=== PATIENT | female | born 1940 | race Caucasian/White ===

== ENCOUNTER 2021-12-11 03:09 | Emergency (ER) | payer MEDICARE ==
[~2021-12-11] VITALS: Ht 167.6 cm; Wt 77.5 kg
--- NOTE | 2021-12-11 03:27 | EKG ---
[address] [address] Test Date: 2021-12-11 Test Time: 03:21:37 Pat Name: HADLEY FISHER Department: Room: Gender: F Incident Handler: CHRISTI : 1940 Requested By: KHANH HOLELY Order Number: [id number] Reading MD: Hardy Ramirez MD Measurements Intervals [place] Rate: 71 P: RI: QRS: 19 QRSD: 78 T: 24 QT: 386 QTc: 424 Interpretive Statements SR PACS Electronically Signed On 12-11-2021 10:55:49 [employer]OVE [employer]INTER by Hardy Ramirez MD
[2021-12-11] MEDS ORDERED: ONDANSETRON PF 4 MG/2 ML VIAL. IVP ONE (04:00)
[2021-12-11] MEDS ORDERED: MORPHINE SULFATE 4 MG/ML DISP.SYRIN. ONE (04:00)
[2021-12-11] MEDS ORDERED: CONTRAST GIVEN. MC PRN (04:00)
[2021-12-11] MEDS ORDERED: FAMOTIDINE 20 MG/2 ML VIAL IVP ONE (04:00)
[2021-12-11] MEDS ORDERED: IV NORMAL SALINE 1,000ML 1,000 ML IV ONE (04:00)
[2021-12-11 04:02] LABS: BASO % 0 % (0-3); EOS # 0.3 x10^3/uL (0.0-0.7); EOS % 2 % (0-3); HEMATOCRIT 40.9 % (36.0-47.0); HEMOGLOBIN 13.2 g/dL (12.0-15.5); LYMPH % 18 % (24-48); MEAN CORPUSCULAR HEMOGLOBIN 30 pg (25-35); MEAN CORPUSCULAR HGB CONC 32 g/dL (31-37); MEAN CORPUSCULAR VOLUME 94 fL (79-100); MONO # 0.8 x10^3/uL (0.0-1.1); MONO % 7 % (0-9); NEUT # 8.1 x10^3uL (1.8-7.7); NEUT % 73 % (31-73); PLATELET COUNT 245 x10^3/uL (140-400); RED BLOOD COUNT 4.34 x10^6/uL (3.50-5.40); RED CELL DISTRIBUTION WIDTH 14.1 % (11.5-14.5); WHITE BLOOD COUNT 11.2 x10^3/uL (4.0-11.0)
[2021-12-11 04:14] LABS: CALCIUM 9.1 mg/dL (8.5-10.1); CREATININE 0.7 mg/dL (0.6-1.0); GFR 80.5; POTASSIUM 3.9 mmol/L (3.5-5.1)
[2021-12-11 04:19] LABS: ALBUMIN 3.8 g/dL (3.4-5.0); ALBUMIN/GLOBULIN RATIO 1.2 (1.0-1.7); MAGNESIUM 2.1 mg/dL (1.8-2.4); TOTAL BILIRUBIN 0.6 mg/dL (0.2-1.0); TOTAL PROTEIN 6.9 g/dL (6.4-8.2)
--- NOTE | 2021-12-11 04:22 | RAD ---
EXAM: CT head without contrast INDICATION: Headache, nausea COMPARISON: CT head 12/11/2021 TECHNIQUE: Axial CT imaging through the head without intravenous contrast. Sagittal and coronal refor mats were obtained. One or more of the following individualized dose reduction techniques were utilized for this examinat ion: 1. Automated exposure control 2. Adjustment of the mA and/or kV according to patient size 3. Use of iterative reconstruction technique. FINDINGS: There is subarachnoid hemorrhage throughout the basal cisterns and in the fourth ventricle. Ventricle s and sulci are prominent. There is mild patchy deep white matter hypoattenuation. No acute infarct. No midline shift. The skull and scalp are intact. Paranasal sinuses and mastoid air cells are clear. Globes and orbits are intact. IMPRESSION: Subarachnoid hemorrhage in the basal cisterns. Recommend CT angiogram to further evaluate . FOR INTERNAL CODING PURPOSES Critical result: Findings discussed with KHANH HOLLEY DO at 12/11/2021 4:18 AM. RESULT CODE: (C) Electronically signed by: Anayeli Mcbride MD (12/11/2021 4:20 AM) JOSE
--- NOTE | 2021-12-11 04:27 | PHYS DOC ---
Past History Past Surgical History: Pacemaker Additional Past Surgical Histo: right knee, Hip replacement x2 Alcohol Use: Occasionally General Adult EDM: Chief Complaint: HEADACHE HPI: HPI: 81 yo F PMH HTN, HLD and SSS w/pacemaker, presents to the ED brought in by patient's son with complaints of left-sided gradual onset headache, slowly worsening with associated nausea and vomiting. Reports symptoms started approximately 4 hours ago around midnight. Patient states approximate 1 week ago was admitted to [facility] after syncopal episode. Patient had a loop recorder at that time that showed a 6-second pause and a pacemaker was placed. Patient reports no recent falls or trauma after being discharged from the hospital. Is not on any anticoagulants. No history of migraine headaches. No associated photophobia, phonophobia, aphasia, facial droop, arm or leg weakness, blurry vision or chest pain. Review of Systems: Review of Systems: Constitutional: Denies fever or chills Eyes: Denies change in visual acuity HENT: Denies nasal congestion or sore throat Respiratory: Denies cough or shortness of breath Cardiovascular: Denies chest pain or edema GI: Denies abdominal pain, bloody stools or diarrhea : Denies dysuria or hematuria Musculoskeletal: Denies back pain or joint pain Integument: Denies rash or diaphoresis Neurologic: Denies neck pain, focal weakness or sensory changes Endocrine: Denies polyuria or polydipsia Lymphatic: Denies swollen glands Psychiatric: Denies depression or anxiety Current Medications: Current Meds: Current Medications Medications (Trade) Dose Ordered Sig/Sarah Start Time Stop Time Status Last Admin Dose Admin Famotidine (Pepcid Vial) 20 mg 1X ONCE 12/11/21 04:00 12/11/21 04:01 DC 12/11/21 03:48 20 MG Info (Do NOT chart on this entry -- for MONITORING) 1 each PRN DAILY PRN 12/11/21 04:00 12/13/21 03:59 Iohexol (Omnipaque 350 Mg/ml) 100 ml 1X ONCE 12/11/21 04:30 12/11/21 04:31 Metoclopramide HCl (Reglan Vial) 10 mg 1X ONCE 12/11/21 04:30 12/11/21 04:31 12/11/21 04:04 10 MG Morphine Sulfate (Morphine 4mg Syringe) 4 mg STK-MED ONCE 12/11/21 04:00 12/11/21 04:00 DC Ondansetron HCl (Zofran) 4 mg 1X ONCE 12/11/21 04:00 12/11/21 04:01 DC 12/11/21 03:48 4 MG Sodium Chloride 1,000 ml @ 1,000 mls/hr 1X ONCE 12/11/21 04:00 12/11/21 04:59 12/11/21 03:48 1,000 MLS/HR Allergies: Allergies: Allergies Coded Allergies Type Severity Reaction Last Updated Verified latex Allergy Intermediate 12/11/21 Yes Physical Exam: PE: Constitutional: Uncomfortable appearing, holding her head in her hands, active emesis HENT: Bilateral periorbital ecchymosis which appears old-son states this was from fall 1 week ago Eyes: Pupils equal and reactive EOMI, conjunctiva normal, no discharge. Neck: Normal range of motion, supple, no midline neck pain Cardiovascular: S1/2 present, regular rhythm Lungs & Thorax: Speaking in full sentences, bilateral equal chest rise, no tachypnea or increased work of breathing Abdomen: soft, no tenderness, Skin: Warm, dry, no erythema, no rash. [] Extremities: No tenderness, no cyanosis, Neurologic: NIHSS0, GCS 15, Alert and oriented X 3, normal motor function, normal sensory function, no focal deficits noted. [] Psychologic: Normal mood, normal affect Current Patient Data: Labs: Laboratory Tests Test 12/11/21 03:34 White Blood Count 11.2 x10^3/uL (4.0-11.0) H Red Blood Count 4.34 x10^6/uL (3.50-5.40) Hemoglobin 13.2 g/dL (12.0-15.5) Hematocrit 40.9 % (36.0-47.0) Mean Corpuscular Volume 94 fL (79-100) Mean Corpuscular Hemoglobin 30 pg (25-35) Mean Corpuscular Hemoglobin Concent 32 g/dL (31-37) Red Cell Distribution Width 14.1 % (11.5-14.5) Platelet Count 245 x10^3/uL (140-400) Neutrophils (%) (Auto) 73 % (31-73) Lymphocytes (%) (Auto) 18 % (24-48) L Monocytes (%) (Auto) 7 % (0-9) Eosinophils (%) (Auto) 2 % (0-3) Basophils (%) (Auto) 0 % (0-3) Neutrophils # (Auto) 8.1 x10^3uL (1.8-7.7) H Lymphocytes # (Auto) 2.0 x10^3/uL (1.0-4.8) Monocytes # (Auto) 0.8 x10^3/uL (0.0-1.1) Eosinophils # (Auto) 0.3 x10^3/uL (0.0-0.7) Basophils # (Auto) 0.0 x10^3/uL (0.0-0.2) Vital Signs: Vital Signs Date Time Temp Pulse Resp B/P (MAP) Pulse Ox O2 Delivery O2 Flow Rate FiO2 12/11/21 04:03 22 12/11/21 03:16 98.0 78 165/89 (114) 97 Room Air EKG: EKG: Sinus rhythm with PACs 71 bpm, no axis deviation, QTC lead III, no ST elevation or ST depression Radiology/Procedures: Radiology/Procedures: IMAGING REPORT Signed PATIENT: HADLEY FISHER ACCOUNT: [id number] : 1940 LOCATION: ER AGE: 81 SEX: F EXAM STATUS: REG ER ORD. PHYSICIAN: JOSEFINA HOLLEY DO REASON: Headache, nausea PROCEDURE: CT HEAD WO CONTRAST EXAM: CT head without contrast INDICATION: Headache, nausea COMPARISON: CT head 12/11/2021 TECHNIQUE: Axial CT imaging through the head without intravenous contrast. Sagittal and coronal reformats were obtained. One or more of the following individualized dose reduction techniques were utilized for this examination: 1. Automated exposure control 2. Adjustment of the mA and/or kV according to patient size 3. Use of iterative reconstruction technique. FINDINGS: There is subarachnoid hemorrhage throughout the basal cisterns and in the fourth ventricle. Ventricles and sulci are prominent. There is mild patchy deep white matter hypoattenuation. No acute infarct. No midline shift. The skull and scalp are intact. Paranasal sinuses and mastoid air cells are clear. Globes and orbits are intact. IMPRESSION: Subarachnoid hemorrhage in the basal cisterns. Recommend CT angiogram to further evaluate. FOR INTERNAL CODING PURPOSES Critical result: Findings discussed with JOSEFINA HOLLEY DO at 12/11/2021 4:18 AM. RESULT CODE: (C) Electronically signed by: Anayeli Mcbride MD (12/11/2021 4:20 AM) [facility] DICTATED AND SIGNED BY: ANAYELI MCBRIDE MD DATE: 12/11/21414 CC: CARINA KHALIL MD, [facility]; JOSEFINA HOLLEY DO ~MTH0 0 IMAGING REPORT Signed PATIENT: HADLEY FISHER ACCOUNT: [id number] : 1940 LOCATION: ER AGE: 81 SEX: F EXAM STATUS: REG ER ORD. PHYSICIAN: JOSEFINA HOLLEY DO REASON: Severe headache, n/v Omni 350 90cc PROCEDURE: CT ANGIOGRAPHY HEAD AND NECK CTA HEAD AND NECK W/WO CONTRAST History:Reason: Severe headache, n/v. Subarachnoid hemorrhage. Technique: After bolus of 90 mL Isovue-370 intravenous contrast, volumetric CT data acquisition was acquired of the head and neck. Multiplanar reconstruction images to include MIP and 3-D reconstruction images are submitted. Exposure: One or more of the following individualized dose reduction techniques were utilized for this examination: 1. Automated exposure control 2. Adjustment of the mA and/or kV according to patient size 3. Use of iterative reconstruction technique. Comparison: CT head same day Any determination of stenosis is based on NASCET criteria. Head CTA: ICA: No stenosis, occlusion or aneurysm. MCA: No stenosis, occlusion or aneurysm. SEAN: No stenosis, occlusion or aneurysm. IT SUPPORT ENGINEER: No stenosis, occlusion or aneurysm. Basilar artery: No stenosis, occlusion or aneurysm. Distal vertebral arteries: No stenosis, occlusion or aneurysm. CT angiogram neck: Aortic arch: Bovine configuration of the arch. Great vessel origins are patent. Common carotid arteries: No stenosis, occlusion or dissection. Internal carotid arteries: Mild calcifications at both carotid bulbs. This results in 40 percent stenosis of the right internal carotid artery, and 20 percent stenosis of the left internal carotid artery. External carotid arteries: Patent Vertebral arteries: No stenosis, occlusion or dissection. Dural venous sinuses are patent. Subarachnoid hemorrhage in the basal cisterns is redemonstrated. Imaged lung apices are unremarkable. Heterogeneous multinodular thyroid gland. The largest nodule on the right measuring 1.3 cm. Bones: No pathologic osseous lesions. Mild degenerative disc disease. Impression: 1. No acute arterial abnormality or evidence of aneurysm. 2. Unchanged subarachnoid hemorrhage in the basal cisterns. 3. Heterogeneous multinodular thyroid. Electronically signed by: Anayeli Mcbride MD (12/11/2021 4:59 AM) [facility] DICTATED AND SIGNED BY: ANAYELI MCBRIDE MD DATE: 12/11/21 3875 CC: CARINA KHALIL MD, [facility]; JOSEFINA HOLLEY DO ~MTH0 0 IMAGING REPORT Signed PATIENT: HADLEY FISHER ACCOUNT: [id number] : 1940 LOCATION: ER AGE: 81 SEX: F EXAM STATUS: REG ER ORD. PHYSICIAN: JOSEFINA HOLLEY DO REASON: Left shoulder pain, recent pacemaker implant, nausea PROCEDURE: CHEST AP ONLY EXAM: XR CHEST 1V 12/11/2021 3:28 AM CLINICAL INDICATION: Left shoulder pain, recent pacemaker implant, nausea COMPARISON: None TECHNIQUE: AP view of the chest FINDINGS: There is a left subclavian dual-lead pacemaker. The heart and mediastinum are normal. Lungs are well-expanded and clear. No consolidation, pleural effusion, or pneumothorax. Pulmonary vascularity is normal. The thoracic skeleton is intact. IMPRESSION: No acute cardiopulmonary abnormality. Electronically signed by: Anayeli Mcbride MD (12/11/2021 4:31 AM) [facility] DICTATED AND SIGNED BY: ANAYELI MCBRIDE MD DATE: 12/11/21 0430 CC: CARINA KHALIL MD, [facility]; JOSEFINA HOLLEY DO ~MTH0 0 Heart Score: C/O Chest Pain: No Risk Factors: Risk Factors: DM, Current or recent (<one month) smoker, HTN, HLP, family history of CAD, obesity. Risk Scores: Score 0 - 3: 2.5% MACE over next 6 weeks - Discharge Home Score 4 - 6: 20.3% MACE over next 6 weeks - Admit for Clinical Observation Score 7 - 10: 72.7% MACE over next 6 weeks - Early Invasive Strategies Course & Med Decision Making: Course & Med Decision Making Pertinent Labs and Imaging studies reviewed. (See chart for details) Concern for uncontrolled hypertension and nontraumatic subarachnoid hemorrhage, no aneurysm seen on CTA head and neck. Patient started on nicardipine infusion. I spoke to the pharmacist, hospital does not have nimodipine. [employer] report shows no evidence of VT/VF, 1 episode of AT/AF, 0 pace terminated episodes. Labs groosly unremarkable with normal coag studies. Rapid Covid negative. Chest x-ray with no acute process. Emesis resolved s/p zofran, compazine, reglan and analgesia. Patient requested to stay in the [facility] system. [facility] accepted by Dr. Lazaro for higher level of care. Patient stable at time of transfer and agrees with this plan. I have spoken with the patient and/or caregivers-pt's son. I have explained the patient's condition, diagnosis and treatment plan based on the information alia ilable to me at this time. I have answered the patient's and/or caregivers questions and answered any concerns. The patient and/or caregivers have as good an understanding of the patient's diagnosis, condition and treatment plan as can be expected at this point. The patient has been stabilized within the capability of the emergency department. The patient will be transported for further care and management or will be moved to an observation or inpatient service. I have communicated with the staff or medical practitioner taking over this patient's care. Critical Care: Authorized and Performed by: Josefina Holley DO Total critical care time: approximately 30 minutes Due to a high probability of clinically significant, life threatening deterioration, the patient required my highest level of preparedness to intervene emergently and I personally spent this critical care time directly and personally managing the patient. This critical care time included obtaining a history; examining the patient; pulse oximetry; ventilator management if necessary; ordering and review of studies; arranging urgent treatment with development of a management plan; evaluation of patient's response to treatment; frequent reassessment; discussion with patient/family; and, discussions with other providers. This critical care time was performed to assess and manage the high probability of imminent, life-threatening deterioration that could result in multi-organ failure. It was exclusive of separately billable procedures and treating other patients and teaching time. Please see MDM section and the rest of the note for further information on patient assessment and treatment. Dragon Disclaimer: Dragon Disclaimer: This electronic medical record was generated, in whole or in part, using a voice recognition dictation system. Departure Departure: Impression: Primary Impression: Nontraumatic subarachnoid hemorrhage Additional Impressions: Hypertension Headache Nausea and vomiting Disposition: 02 [facility] (to [facility], accepted by Dr. Carreon) Condition: CRITICAL Referrals: CARINA KHALIL MD, [facility] (PCP) JOSEFINA HOLLEY DO Dec 11, 2021 04:27
[2021-12-11] MEDS ORDERED: IOHEXOL 350 MG/ML 100 ML VIAL. IV ONE (04:30)
[2021-12-11] MEDS ORDERED: METOCLOPRAMIDE HCL 10 MG/2 ML VIAL. IVP ONE (04:30)
[2021-12-11] MEDS ORDERED: MORPHINE SULFATE 4 MG/ML DISP.SYRIN. IV ONE (04:30)
--- NOTE | 2021-12-11 04:33 | RAD ---
EXAM: XR CHEST 1V 12/11/2021 3:28 AM CLINICAL INDICATION: Left shoulder pain, recent pacemaker implant, nausea COMPARISON: None TECHNIQUE: AP view of the chest FINDINGS: There is a left subclavian dual-lead pacemaker. The heart and mediastinum are normal. Lung s are well-expanded and clear. No consolidation, pleural effusion, or pneumothorax. Pulmonary vascu larity is normal. The thoracic skeleton is intact. IMPRESSION: No acute cardiopulmonary abnormality. Electronically signed by: Anayeli Mcbride MD (12/11/2021 4:31 AM) JOSE
[2021-12-11] MEDS ORDERED: IV NORMAL SALINE 250ML 250 ML ONE (04:37)
[2021-12-11] MEDS ORDERED: niCARdipine INJ. IV ONE (04:37)
[2021-12-11] MEDS ORDERED: PROCHLORPERAZINE 10 MG/2 ML VIAL. IV ONE (05:00)
[2021-12-11] MEDS ORDERED: HYDROmorphone PF 1 MG/ML DISP.SYRIN IVP ONE (05:00)
--- NOTE | 2021-12-11 05:01 | RAD ---
CTA HEAD AND NECK W/WO CONTRAST History:Reason: Severe headache, n/v. Subarachnoid hemorrhage. Technique: After bolus of 90 mL Isovue-370 intravenous contrast, volumetric CT data acquisition was a cquired of the head and neck. Multiplanar reconstruction images to include MIP and 3-D reconstruction images are submitted. Exposure: One or more of the following individualized dose reduction techniques were utilized for thi s examination: 1. Automated exposure control 2. Adjustment of the mA and/or kV according to patient size 3. Use of iterative reconstruction technique. Comparison: CT head same day Any determination of stenosis is based on NASCET criteria. Head CTA: ICA: No stenosis, occlusion or aneurysm. MCA: No stenosis, occlusion or aneurysm. SEAN: No stenosis, occlusion or aneurysm. ECHOCARDIOGRAPHY TECH: No stenosis, occlusion or aneurysm. Basilar artery: No stenosis, occlusion or aneurysm. Distal vertebral arteries: No stenosis, occlusion or aneurysm. CT angiogram neck: Aortic arch: Bovine configuration of the arch. Great vessel origins are patent. Common carotid arteries: No stenosis, occlusion or dissection. Internal carotid arteries: Mild calcifications at both carotid bulbs. This results in 40 percent sten osis of the right internal carotid artery, and 20 percent stenosis of the left internal carotid arter y. External carotid arteries: Patent Vertebral arteries: No stenosis, occlusion or dissection. Dural venous sinuses are patent. Subarachnoid hemorrhage in the basal cisterns is redemonstrated. Imaged lung apices are unremarkable. Heterogeneous multinodular thyroid gland. The largest nodule on the right measuring 1.3 cm. Bones: No pathologic osseous lesions. Mild degenerative disc disease. Impression: 1. No acute arterial abnormality or evidence of aneurysm. 2. Unchanged subarachnoid hemorrhage in the basal cisterns. 3. Heterogeneous multinodular thyroid. Electronically signed by: Anayeli Mcbride MD (12/11/2021 4:59 AM) [facility]
[2021-12-11] MEDS ORDERED: AMOX500C PO (05:09)
[2021-12-11] MEDS ORDERED: ATEN50TA PO (05:09)
[2021-12-11] MEDS ORDERED: fish oil (05:09)
[2021-12-11] MEDS ORDERED: LOSA50TA86 PO (05:09)
[2021-12-11] MEDS ORDERED: calcium (05:09)
[2021-12-11] MEDS ORDERED: SIMV20TA18 PO (05:09)
[2021-12-11] MEDS ORDERED: FOLI1TAB35 PO (05:10)
[2021-12-11 06:07] VITALS: BP 121/55
== END 2021-12-11 06:20 | disposition short-term general hospital (02) ==
LOC: ER 03:09
DX: I60.9 Nontraumatic subarachnoid hemorrhage, unspecified (principal); I10 Essential (primary) hypertension; R51.9 Headache, unspecified; R11.2 Nausea with vomiting, unspecified; E78.5 Hyperlipidemia, unspecified; Z20.822 Contact with and (suspected) exposure to COVID-19; Z95.0 Presence of cardiac pacemaker; Z91.040 Latex allergy status
CPT/HCPCS: 36415; 70450; 70496; 70498; 71045; 80053; 83735; 84484; 85025; 85610; 85730; 87426; 93005; 96361; 96365; 96375; 99291; J1170; J2270; J2405; J2765; J3490; J7030; J7050; Q9967